=== PATIENT | male | born 1975 | race Caucasian/White ===

== ENCOUNTER 2023-01-11 17:31 | Emergency (ER) | payer OTHER ==
--- OUTSIDE RECORDS SUMMARY | 2023-01-11 17:35 | XMS REPORT | Continuity of Care Document ---
:1975 Author Organization [facility] t Address [address] [place] [address]. [address] [place] [address] Care Team Providers Name Role Phone Sen Knight Primary Care Physician DARÍO BALDERAS Attending Clinician Unavailable Mauro HICKMAN, Vipul Mondragon Attending Clinician Unavailable Sen Knight Attending Clinician Doctor Unassigned, [place] Attending Clinician Unavailable TARUN SILVEIRA Attending Clinician Unavailable Darío Balderas MD Attending Clinician [facility]ending Clinician Unavailable Tarun Al Attending Clinician [facility] Attending Clinician Unavailable Chidi Ortega RN, Onelia Mondragon Attending Clinician Unavailable Gavino Hawkins MD Attending Clinician Darío Mayfield MD Attending Clinician DARÍO MAYFIELD Attending Clinician Unavailable Lab, [facility] Attending Clinician Unavailable Nicanor Cleary MD Attending Clinician Elvin Odom DO Attending Clinician Pcp-Lab Attending Clinician Unavailable Azar TUCKER, Jamal Baird Attending Clinician JAMAL ASKEW Attending Clinician Unavailable Payers Payer Name Policy Type Policy Number Effective Date Expiration Date S eliseoce [facility] [id number] 2022 00:00:00 PLUS Problems Condition Condition Condition Status Onset Resolution Last Treating Co mments Source Name Details Category Date Date Treatment Clinician Date Polyarthra Polyarthra Disease Active U nivers lgia lgia 2 ity of 00:00: [address] History of History of Disease Active U nivers ankylosing ankylosing 2 it [place] [address] [place] [address] Branch Long-term Long-term Disease Active Uni vers use of use of 09-28 [place] Medical medication medication Br anch Generalize Generalize Disease Active U nivers d OA d OA 09-28 ity of 00:00: [address] HLA B27 HLA B27 Disease Active 2012-08 Ignacio (HLA B27 (HLA B27 10-10 Health positive) positive) 00:00: 00 Back pain Back pain Disease Active 2012-08 Jared ris 10-10 Health 00:00: 00 Rhabdomyol Rhabdomyol Disease Active 2012-08 H arris ysis ysis 2 Health 00:00: 00 Chest pain Chest pain Disease Active 2012-08 H arris 2-16 Health 00:00: 00 Eye pain Eye pain Disease Active Harri s 11-09 Health 00:00: 00 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 11-09 Health 00:00: 00 Anemia, Anemia, Disease Active 2011-08 Ignacio unspecifie unspecifie 2 He alth d d 00:00: 00 Blood in Blood in Disease Active 2011-08 Crissy harrell stool stool 2 Health 00:00: 00 Dental Dental Disease Active Ignacio caries caries 05-10 Health 00:00: 00 Allergies, Adverse Reactions, Alerts Allergy Allergy Status Severity Reaction(s) Onset Inactive Treating Comm ents Source Name Type Date Date Clinician NO KNOWN Drug Active Univers ALLERGIE Class ity of S [facility] Family History Family Member Diagnosis Comments Start Date Stop Date Source Maternal grandfather Diabetes [facility] Maternal grandmother Diabetes [facility] Natural mother Hypertension Ignacio Maher ealt Paternal grandmother Arthritis [facility] Paternal grandmother Diabetes [facility] Social History Social Habit Start Date Stop Date Quantity Comments Source History of tobacco Cigarette Smoker [facility] Gender identity Ignacio Kerns alth Sexual orientation [facility] Exposure to 2022-11-27 2022-12-07 Not sure University of SARS-CoV-2 (event) 00:00:00 13:13:00 [facility] Tobacco use and 2022-12-07 2022-12-07 Smokeless Universit y of exposure 00:00:00 00:00:00 tobacco non-user [facility] Alcohol intake 2021-12-15 2021-12-15 Current drinker Located within [facility] 00:00:00 00:00:00 of alcohol (finding) History of Social 2021-05-07 2021-05-07 [facility] function 00:00:00 00:00:00 Cigarettes smoked 2013-06-27 2013-06-27 [facility] current (pack per 00:00:00 00:00:00 day) - Reported Cigarette 2013-06-27 2013-06-27 [facility] pack-years 00:00:00 00:00:00 [birth year] Ignacio Kerns alth 00:00:00 00:00:00 Smoking Status Start Date Stop Date Source Ex-smoker 2022-12-07 00:00:00 2022-12-07 00:00:00 [facility]i ty of [facility] Smokes tobacco daily 2013-06-27 00:00:00 [facility] Medications Ordered Filled Start Stop Current Ordering Indication Dosage Frequency Signature Comments Components Source Medication Medication Date Date Medication? Clinician (SIG) Name Name JOE Yes [id number] 1{tbl} Take 1 U nivers 50-200-25 4-18 tablet by ity o f mg [place] the Medical morning. [place] JOE Yes [id number] 1{tbl} Take 1 U nivers 50-200-25 4-18 tablet by ity o f mg [place] the [place]. [place] JOE Yes [id number] 1{tbl} Take 1 U nivers 50-200-25 4-18 tablet by ity o f [place] the [place] morning. [place] DIAZ Yes [id number] 1{tbl} Take 1 U nivers 50-200-25 4-18 tablet by ity o f [place] the [place] morning. Jaelyn DIAZ Yes [id number] 1{tbl} Take 1 U nivers 50-200-25 4-18 tablet by ity o f [place] tablet [place] the [place] morning. Jaelyn DIAZ 0 Yes [id number] 1{tbl} Take 1 U nivers 50-200-25 4-18 tablet by ity o f mg tablet [place] the [place] morning. Jaelyn DIAZ Yes [id number] 1{tbl} Take 1 U nivers 50-200-25 4-18 tablet by ity o f [place] the [place]. Jaelyn DIAZ Yes [id number] 1{tbl} Take 1 U nivers 50-200-25 4-18 tablet by ity o f mg tablet [place] the Medical morning. Jaelyn DIAZ Yes [id number] 1{tbl} Take 1 U nivers 50-200-25 4-18 tablet by ity o f mg tablet [place] the [place] morning. Jaelyn DIAZ Yes [id number] 1{tbl} Take 1 U nivers 50-200-25 4-18 tablet by ity o f mg tablet [place] the [place] morning. Ja[place] DIAZ 0 Yes [id number] 1{tbl} Take 1 U nivers 50-200-25 4-18 tablet by ity o f mg tablet [place] the [place] morning. Jaelyn DIAZ 2022-0 Yes [id number] 1{tbl} Take 1 U nivers 50-200-25 4-18 tablet by ity o f mg tablet [place] the Medical morning. Ja[place] DIAZ 0 Yes [id number] 1{tbl} Take 1 U nivers 50-200-25 4-18 tablet by ity o f mg tablet 00:00: [facility]. Branch ranitidine 2023-0 2023- No 150mg Take 150 U nivers 150 mg 4-04 04-04 mg by ity of tablet 12:51: 00:00 mouth 2 [place] 47 :00 (two) Medical times Branch daily. ranitidine 2023-0 2023- No 150mg Take 150 U nivers 150 mg 4-04 04-04 mg by ity of tablet 12:51: 00:00 mouth 2 [place] 47 :00 (two) Medical times Branch daily. ranitidine 2023-0 2023- No 150mg Take 150 U nivers 150 mg 4-04 04-04 mg by ity of tablet 12:51: 00:00 mouth 2 [place] 47 :00 (two) Medical times [place] daily. ranitidine 2023-0 2023- No 150mg Take 150 U nivers 150 mg 4-04 04-04 mg by ity of tablet 12:51: 00:00 mouth 2 [place] 47 :00 (two) Medical times [place] daily. perphenazin 2023-0 2023- No 8mg Take 1 Uni vers e 8 mg 4-04 04-04 tablet by ity of tablet 12:51: 00:00 mouth in [place] 46 :00 the Medical morning. Branch perphenazin 2023-0 2023- No 8mg Take 1 Uni vers e 8 mg 4-04 04-04 tablet by ity of tablet 12:51: 00:00 mouth in [place] 46 :00 the Medical morning. Branch perphenazin 2023-0 2023- No 8mg Take 1 Uni vers e 8 mg 4-04 04-04 tablet by ity of tablet 12:51: 00:00 mouth in [place] 46 :00 the Medical morning. Branch perphenazin 2023-0 2023- No 8mg Take 1 Uni vers e 8 mg 4-04 04-04 tablet by ity of tablet 12:51: 00:00 mouth in [place] 46 :00 the Medical morning. Branch omeprazole 2023-0 2023- No 20mg Take 20 mg Univers 20 mg -11 23-04 by mouth ity of capsule 12:51: 00:00 daily. [place] 38 :00 Medical Branch omeprazole 2023-0 2023- No 20mg Take 20 mg Univers 20 mg 4-11 23-04 by mouth ity of capsule 12:51: 00:00 daily. [place] 38 :00 [facility] Branch omeprazole 2023-0 2023- No 20mg Take 20 mg Univers 20 mg -11 23-04 by mouth ity of capsule 12:51: 00:00 daily. [place] 38 :00 [facility] Branch omeprazole 2023-0 2023- No 20mg Take 20 mg Univers 20 mg -11 23-04 by mouth ity of capsule 12:51: 00:00 daily. 38 :00 [facility] Branch lisinopril 2023-0 2023- No 2.5mg Take 2.5 U nivers 2.5 mg 4-04 04-04 mg by ity of tablet 12:51: 00:00 mouth [place] 29 :00 daily. [facility] Branch lisinopril 2023-0 2023- No 2.5mg Take 2.5 U nivers 2.5 mg 4-04 04-04 mg by ity of tablet 12:51: 00:00 mouth [place] 29 :00 daily. [facility] lisinopril 2023-0 2023- No 2.5mg Take 2.5 U nivers 2.5 mg 4-04 04-04 mg by ity of tablet 12:51: 00:00 mouth [place] 29 :00 daily. [facility] lisinopril 2023-0 2023- No 2.5mg Take 2.5 U nivers 2.5 mg 4-04 04-04 mg by ity of tablet 12:51: 00:00 mouth [place] 29 :00 daily. [facility] FLUoxetine 2023-0 2023- No 40mg Take 40 mg Univers 20 mg -11 23-04 by mouth ity of capsule 12:51: 00:00 daily. [place] 19 :00 [facility] FLUoxetine 2023-0 2023- No 40mg Take 40 mg Univers 20 mg -11 23-04 by mouth ity of capsule 12:51: 00:00 daily. [place] 19 :00 [facility] FLUoxetine 2023-0 2023- No 40mg Take 40 mg Univers 20 mg -11 23-04 by mouth ity of capsule 12:51: 00:00 daily. [place] 19 :00 [facility] FLUoxetine 2023-0 2023- No 40mg Take 40 mg Univers 20 mg -11 23-04 by mouth ity of capsule 12:51: 00:00 daily. [place] 19 :00 Medical Branch diphenhydrA 2022-0 2022- No 50mg Take 50 mg Univers MINE 50 mg 11-23-04 by mouth ity of capsule 12:51: 00:00 daily. [place] 16 :00 Medical Branch diphenhydrA 2022-0 2022- No 50mg Take 50 mg Univers MINE 50 mg 11-23-04 by mouth ity of capsule 12:51: 00:00 daily. [place] 16 :00 Medical Branch diphenhydrA 2022-0 2022- No 50mg Take 50 mg Univers MINE 50 mg 11-23-04 by mouth ity of capsule 12:51: 00:00 daily. [place] 16 :00 Medical Branch diphenhydrA 2022-0 2022- No 50mg Take 50 mg Univers MINE 50 mg 11-23-04 by mouth ity of capsule 12:51: 00:00 daily. [place] 16 :00 Medical Branch carBAMazepi 2022-0 2022- No 400mg Take 400 Univers ne 200 mg 4-04 04-04 mg by ity of tablet 12:51: 00:00 mouth [place] 13 :00 daily. Medical Branch carBAMazepi 2022-0 2022- No 400mg Take 400 Univers ne 200 mg 4-04 04-04 mg by ity of tablet 12:51: 00:00 mouth [place] 13 :00 daily. Medical Branch carBAMazepi 2022-0 2022- No 400mg Take 400 Univers ne 200 mg 4-04 04-04 mg by ity of tablet 12:51: 00:00 mouth [place] 13 :00 daily. Medical Branch carBAMazepi 2022-0 3- No 400mg Take 400 Univers ne 200 mg 4-04 04-04 mg by ity of tablet 12:51: 00:00 mouth [place] 13 :00 daily. Medical Branch escitalopra 2022-0 Yes Univer s m oxalate 4-04 ity of 10 mg 00:00: [place] tablet 00 Medical Branch escitalopra 2022-0 Yes Univer s m oxalate 4-04 ity of 10 mg 00:00: [place] tablet 00 Medical Branch escitalopra 2022-0 Yes Univer s m oxalate 4-04 ity of 10 mg 00:00: [place] tablet 00 Medical Branch escitalopra 2022-0 Yes Univer s m oxalate 4-04 ity of 10 mg 00:00: [place] tablet 00 Medical Branch escitalopra 2022-0 Yes Univer s m oxalate 4-04 ity of 10 mg 00:00: [place] tablet 00 Medical Branch escitalopra 2022-0 Yes Univer s m oxalate 4-04 ity of 10 mg 00:00: [place] tablet 00 Medical Branch escitalopra 2022-0 Yes Univer s m oxalate 4-04 ity of 10 mg 00:00: [place] tablet 00 Medical Branch escitalopra 2022-0 Yes Univer s m oxalate 4-04 ity of 10 mg 00:00: [place] tablet 00 Medical Branch escitalopra 2022-0 Yes Univer s m oxalate 4-04 ity of 10 mg 00:00: [place] tablet 00 Medical Branch escitalopra 2022-0 Yes Univer s m oxalate 4-04 ity of 10 mg 00:00: [place] tablet 00 Medical Branch Etanercept 0 Yes [id number] 50mg inject 1 Univers (ENBREL 3-30 Pen under ity of SURECLICK) 00:00: the skin [place] 50 mg/mL ( 00 weekly. Medic al mL) Branch injection Etanercept 2022-0 Yes [id number] 50mg inject 1 Univers (ENBREL 3-30 Pen under ity of SURECLICK) 00:00: the skin [place] 50 mg/mL ( 00 weekly. Medic al mL) Branch injection Etanercept 2022-0 Yes [id number] 50mg inject 1 Univers (ENBREL 3-30 Pen under ity of SURECLICK) 00:00: the skin [place] 50 mg/mL ( 00 weekly. Medic al mL) Branch injection Etanercept 2022-0 Yes [id number] 50mg inject 1 Univers (ENBREL 3-30 Pen under ity of SURECLICK) 00:00: the skin [place] 50 mg/mL ( 00 weekly. Medic al mL) Branch injection Etanercept 2022-0 Yes [id number] 50mg inject 1 Univers (ENBREL 3-30 Pen under ity of SURECLICK) 00:00: the skin [place] 50 mg/mL ( 00 weekly. Medic al mL) Branch injection Etanercept 2022-0 Yes [id number] 50mg inject 1 Univers (ENBREL 3-30 Pen under ity of SURECLICK) 00:00: the skin [place] 50 mg/mL (1 00 weekly. Medic al mL) Branch injection Etanercept 3-0 Yes [id number] 50mg inject 1 Univers (ENBREL 3-30 Pen under ity of SURECLICK) 00:00: the skin [place] as 50 mg/mL (1 00 weekly. Medic al mL) Branch injection Etanercept 3-0 Yes [id number] 50mg inject 1 Univers (ENBREL 3-30 Pen under ity of SURECLICK) 00:00: the skin [place] as 50 mg/mL ( 00 weekly. Medic al mL) Branch injection Etanercept 2022-0 Yes [id number] 50mg inject 1 Univers (ENBREL 3-30 Pen under ity of SURECLICK) 00:00: the skin [place] as 50 mg/mL ( 00 weekly. Medic al mL) Branch injection Etanercept 2022-0 Yes [id number] 50mg inject 1 Univers (ENBREL 3-30 Pen under ity of SURECLICK) 00:00: the skin [place] as 50 mg/mL ( 00 weekly. Medic al mL) Branch injection Etanercept 2022-0 Yes [id number] 50mg inject 1 Univers (ENBREL 3-30 Pen under ity of SURECLICK) 00:00: the skin [place] as 50 mg/mL ( 00 weekly. Medic al mL) Branch injection Etanercept 2022-0 Yes [id number] 50mg inject 1 Univers (ENBREL 3-30 Pen under ity of SURECLICK) 00:00: the skin [place] as 50 mg/mL ( 00 weekly. Medic al mL) Branch injection Etanercept 2022-0 Yes [id number] 50mg inject 1 Univers (ENBREL 3-30 Pen under ity of SURECLICK) 00:00: the skin [place] as 50 mg/mL (1 00 weekly. Medic al mL) Branch injection Etanercept 3-0 Yes [id number] 50mg inject 1 Univers (ENBREL 3-30 Pen under ity of SURECLICK) 00:00: the skin [place] as 50 mg/mL (1 00 weekly. Medic al mL) Branch injection Etanercept 3-0 Yes [id number] 50mg inject 1 Univers (ENBREL 3-30 Pen under ity of SURECLICK) 00:00: the skin [place] as 50 mg/mL (1 00 weekly. Medic al mL) Branch injection Etanercept 2022-0 Yes [id number] 50mg inject 1 Univers (ENBREL 3-30 Pen under ity of SURECLICK) 00:00: the skin [place] as 50 mg/mL ( 00 weekly. Medic al mL) Branch injection Etanercept 2022-0 Yes [id number] 50mg inject 1 Univers (ENBREL 3-30 Pen under ity of SURECLICK) 00:00: the skin [place] as 50 mg/mL ( 00 weekly. Medic al mL) Branch injection Etanercept 2022-0 Yes [id number] 50mg inject 1 Univers (ENBREL 3-30 Pen under ity of SURECLICK) 00:00: the skin [place] as 50 mg/mL ( 00 weekly. Medic al mL) Branch injection Etanercept 2022-0 Yes [id number] 50mg inject 1 Univers (ENBREL 3-30 Pen under ity of SURECLICK) 00:00: the skin [place] as 50 mg/mL ( 00 weekly. Medic al mL) Branch injection Etanercept 2022-0 Yes [id number] 50mg inject 1 Univers (ENBREL 3-30 Pen under ity of SURECLICK) 00:00: the skin [place] as 50 mg/mL ( 00 weekly. Medic al mL) Branch injection Etanercept 2022-0 Yes [id number] 50mg inject 1 Univers (ENBREL 3-30 Pen under ity of SURECLICK) 00:00: the skin [place] as 50 mg/mL ( 00 weekly. Medic al mL) Branch injection Etanercept 2022-0 Yes [id number] 50mg inject 1 Univers (ENBREL 3-30 Pen under ity of SURECLICK) 00:00: the skin [place] as 50 mg/mL ( 00 weekly. Medic al mL) Branch injection Etanercept 2022-0 Yes [id number] 50mg inject 1 Univers (ENBREL 3-30 Pen under ity of SURECLICK) 00:00: the skin [place] as 50 mg/mL ( 00 weekly. Medic al mL) Branch injection Etanercept 2022-0 Yes [id number] 50mg inject 1 Univers (ENBREL 3-30 Pen under ity of SURECLICK) 00:00: the skin [place] as 50 mg/mL ( 00 weekly. Medic al mL) Branch injection Etanercept 2022-0 Yes [id number] 50mg inject 1 Univers (ENBREL 3-30 Pen under ity of SURECLICK) 00:00: the skin [place] as 50 mg/mL (1 00 weekly. Medic al mL) Branch injection Etanercept Yes [id number] 50mg inject 1 Univers (ENBREL 3-30 Pen under ity of SURECLICK) 00:00: the skin [place] as 50 mg/mL (1 00 weekly. Medic al mL) Branch injection Etanercept Yes [id number] 50mg inject 1 Univers (ENBREL 3-30 Pen under ity of SURECLICK) 00:00: the skin [place] as 50 mg/mL (1 00 weekly. Medic al mL) Branch injection carBAMazepi Yes 400mg Take 400 U nivers ne 200 mg 2-07 mg by ity of tablet 10:36: mouth daily. Medical Branch diphenhydrA Yes 50mg Take 50 mg Univers MINE 50 mg 2-07 by mouth ity o f capsule 10:36: daily. Medical Branch FLUoxetine Yes 40mg Take 40 mg U nivers 20 mg 2-07 by mouth ity of capsule 10:36: daily. Medical Branch perphenazin Yes 8mg Take 8 mg U nivers e 8 mg 2-07 by mouth ity of tablet 10:36: daily. Medical Branch lisinopril Yes 2.5mg Take 2.5 Un oswaldo 2.5 mg 2-07 mg by ity of tablet 10:36: mouth daily. Medical Branch omeprazole Yes 20mg Take 20 mg U nivers 20 mg 2-07 by mouth ity of capsule 10:36: daily. Medical Branch ranitidine Yes 150mg Take 150 Un oswaldo 150 mg 2-07 mg by ity of tablet 10:36: mouth 2 (two) Medical times Branch daily. carBAMazepi Yes 400mg Take 400 U nivers ne 200 mg 2-07 mg by ity of tablet 10:36: mouth daily. Medical Branch diphenhydrA Yes 50mg Take 50 mg Univers MINE 50 mg 2-07 by mouth ity o f capsule 10:36: daily. Medical Branch FLUoxetine Yes 40mg Take 40 mg U nivers 20 mg 2-07 by mouth ity of capsule 10:36: daily. Medical Branch perphenazin 0 Yes 8mg Take 8 mg U nivers e 8 mg 2-07 by mouth ity of tablet 10:36: daily. Medical Branch lisinopril Yes 2.5mg Take 2.5 Un oswaldo 2.5 mg 2-07 mg by ity of tablet 10:36: mouth daily. Medical Branch omeprazole Yes 20mg Take 20 mg U nivers 20 mg 2-07 by mouth ity of capsule 10:36: daily. Medical Branch ranitidine Yes 150mg Take 150 Un oswaldo 150 mg 2-07 mg by ity of tablet 10:36: mouth 2 (two) Medical times Branch daily. carBAMazepi Yes 400mg Take 400 U nivers ne 200 mg 2-07 mg by ity of tablet 10:36: mouth daily. Medical Branch diphenhydrA 0 Yes 50mg Take 50 mg Univers MINE 50 mg 2-07 by mouth ity o f capsule 10:36: daily. Medical Branch FLUoxetine Yes 40mg Take 40 mg U nivers 20 mg 2-07 by mouth ity of capsule 10:36: daily. Medical Branch perphenazin 0 Yes 8mg Take 8 mg U nivers e 8 mg 2-07 by mouth ity of tablet 10:36: daily. Medical Branch lisinopril Yes 2.5mg Take 2.5 Un oswaldo 2.5 mg 2-07 mg by ity of tablet 10:36: mouth daily. Medical Branch omeprazole Yes 20mg Take 20 mg U nivers 20 mg 2-07 by mouth ity of capsule 10:36: daily. Medical Branch ranitidine 0 Yes 150mg Take 150 Un oswaldo 150 mg 2-07 mg by ity of tablet 10:36: mouth 2 (two) Medical times Branch daily. carBAMazepi 0 Yes 400mg Take 400 U nivers ne 200 mg 2-07 mg by ity of tablet 10:36: mouth daily. Medical Branch diphenhydrA 0 Yes 50mg Take 50 mg Univers MINE 50 mg 2-07 by mouth ity o f capsule 10:36: daily. Medical Branch FLUoxetine 2018-0 Yes 40mg Take 40 mg U nivers 20 mg 2-07 by mouth ity of capsule 10:36: daily. Medical Branch perphenazin 2018-0 Yes 8mg Take 8 mg U nivers e 8 mg 2-07 by mouth ity of tablet 10:36: daily. Medical Branch lisinopril Yes 2.5mg Take 2.5 Un oswaldo 2.5 mg 2-07 mg by ity of tablet 10:36: mouth daily. Medical Branch omeprazole 0 Yes 20mg Take 20 mg U nivers 20 mg 2-07 by mouth ity of capsule 10:36: daily. Medical Branch ranitidine 0 Yes 150mg Take 150 Un oswaldo 150 mg 2-07 mg by ity of tablet 10:36: mouth 2 (two) Medical times Branch daily. carBAMazepi 0 Yes 400mg Take 400 U nivers ne 200 mg 2-07 mg by ity of tablet 10:36: mouth daily. Medical Branch diphenhydrA Yes 50mg Take 50 mg Univers MINE 50 mg 2-07 by mouth ity o f capsule 10:36: daily. Medical Branch FLUoxetine 2017-0 Yes 40mg Take 40 mg U nivers 20 mg 2-07 by mouth ity of capsule 10:36: daily. Medical Branch perphenazin 0 Yes 8mg Take 8 mg U nivers e 8 mg 2-07 by mouth ity of tablet 10:36: daily. Medical Branch lisinopril 0 Yes 2.5mg Take 2.5 Un oswal[place] 2.5 mg 2-07 mg by ity of tablet 10:36: mouth daily. Medical Branch omeprazole 0 Yes 20mg Take 20 mg U nivers 20 mg 2-07 by mouth ity of capsule 10:36: daily. Medical Branch ranitidine 2017-0 Yes 150mg Take 150 Un oswaldo 150 mg 2-07 mg by ity of tablet 10:36: mouth 2 (two) Medical times Branch daily. carBAMazepi 0 Yes 400mg Take 400 U nivers ne 200 mg 2-07 mg by ity of tablet 10:36: mouth [place] 02 daily. Medical Branch diphenhydrA Yes 50mg Take 50 mg Univers MINE 50 mg 2-07 by mouth ity o f capsule 10:36: daily. Medical Branch FLUoxetine 2017-0 Yes 40mg Take 40 mg U nivers 20 mg 2-07 by mouth ity of capsule 10:36: daily. Medical Branch perphenazin 2017- Yes 8mg Take 8 mg U nivers e 8 mg 2-07 by mouth ity of tablet 10:36: daily. Medical Branch lisinopril Yes 2.5mg Take 2.5 Un oswaldo 2.5 mg 2-07 mg by ity of tablet 10:36: mouth [place] 02 daily. Medical Branch omeprazole Yes 20mg Take 20 mg U nivers 20 mg 2-07 by mouth ity of capsule 10:36: daily. Medical Branch ranitidine Yes 150mg Take 150 Un oswaldo 150 mg 2-07 mg by ity of tablet 10:36: mouth 2 (two) Medical times Branch daily. meloxicam 0 Yes 15mg Take 1 Univer s 15 mg 2-07 tablet by ity of tablet 00:00: mouth [place] 00 daily. Medical Branch foLIC acid 0 Yes 1mg Take 1 Unive rs 1 mg tablet 2-07 tablet by ity of 00:00: mouth [place] 00 daily. Medical Branch meloxicam 0 Yes 15mg Take 1 Univer s 15 mg 2-07 tablet by ity of tablet 00:00: mouth [place] 00 daily. Medical Branch foLIC acid 0 Yes 1mg Take 1 Unive rs 1 mg tablet 2-07 tablet by ity of 00:00: mouth [place] 00 daily. Medical Branch meloxicam 0 Yes 15mg Take 1 Univer s 15 mg 2-07 tablet by ity of tablet 00:00: mouth [place] 00 daily. Medical Branch adalimumab 2018-0 Yes 40mg inject 0.8 U nivers (HUMIRA) 40 2-07 mL under ity of mg/0.8 mL 00:00: [place] injection 00 every 2 Medical (two) Branch weeks. methotrexat 2017-0 Yes 20mg Take 8 Univ ers e 2.5 mg 2-07 tablets by ity o f tablet 00:00: mouth [place] 00 weekly. [facility] Branch foLIC acid 2017-0 Yes 1mg Take 1 Unive rs 1 mg tablet 2-07 tablet by ity of 00:00: mouth [place] 00 daily. [facility] Branch meloxicam 2017-0 Yes 15mg Take 1 Univer s 15 mg 2-07 tablet by ity of tablet 00:00: mouth [place] 00 daily. [facility] Branch foLIC acid 2017-0 Yes 1mg Take 1 Unive rs 1 mg tablet 2-07 tablet by ity of 00:00: mouth [place] 00 daily. [facility] Branch meloxicam 2017-0 Yes 15mg Take 1 Univer s 15 mg 2-07 tablet by ity of tablet 00:00: mouth [place] 00 daily. [facility] Branch foLIC acid 0 Yes 1mg Take 1 Unive rs 1 mg tablet 2-07 tablet by ity of 00:00: mouth [place] 00 daily. [facility] Branch meloxicam 0 Yes 15mg Take 1 Univer s 15 mg 2-07 tablet by ity of tablet 00:00: mouth [place] 00 daily. [facility] Branch foLIC acid 2017-0 Yes 1mg Take 1 Unive rs 1 mg tablet 2-07 tablet by ity of 00:00: mouth [place] 00 daily. [facility] meloxicam 2017-0 3- No 15mg Take 1 Unive rs 15 mg 2-07 04-04 tablet by ity of tablet 00:00: 00:00 mouth [place] 00 :00 daily. [facility] Branch foLIC acid 2017-0 3- No 1mg Take 1 Univ ers 1 mg tablet 2-02 22-04 tablet by it y of 00:00: 00:00 mouth [place] 00 :00 daily. [facility] Branch meloxicam 2017-0 3- No 15mg Take 1 Unive rs 15 mg 2-07 04-04 tablet by ity of tablet 00:00: 00:00 mouth [place] 00 :00 daily. [facility] Branch foLIC acid 2017-0 2023- No 1mg Take 1 Univ ers 1 mg tablet 2- 04-04 tablet by it y of 00:00: 00:00 mouth [place] 00 :00 daily. [facility] Branch meloxicam 2017-0 3- No 15mg Take 1 Unive rs 15 mg 2-07 04-04 tablet by ity of tablet 00:00: 00:00 mouth [place] 00 :00 daily. [facility] Branch foLIC acid 2017-0 2023- No 1mg Take 1 Univ ers 1 mg tablet 2-07 04- tablet by it y of 00:00: 00:00 mouth [place] 00 :00 daily. Medical Branch meloxicam 2022- No 15mg Take 1 Unive rs 15 mg 09-28- tablet by ity of tablet 00:00: 00:00 mouth [place] 00 :00 daily. Medical Branch foLIC acid 2022- No 1mg Take 1 Univ ers 1 mg tablet 09-28 tablet by it y of 00:00: 00:00 mouth [place] 00 :00 daily. Medical Branch adalimumab 2022- No 40mg inject 0.8 Univers (HUMIRA) 40 2-07 03-30 mL under ity of mg/0.8 mL 00:00: 00:00 the skin Deyvi as injection 00 :00 every 2 Medical (two) Branch weeks. methotrexat 2022- No 20mg Take 8 Uni vers e 2.5 mg 2-07 03-30 tablets by ity of tablet 00:00: 00:00 mouth [place] 00 :00 weekly. Medical Branch adalimumab 2022- No 40mg inject 0.8 Univers (HUMIRA) 40 2-07 03-30 mL under ity of mg/0.8 mL 00:00: 00:00 the skin Deyvi as injection 00 :00 every 2 Medical (two) Branch weeks. methotrexat 2022- No 20mg Take 8 Uni vers e 2.5 mg 2-07 03-30 tablets by ity of tablet 00:00: 00:00 mouth [place] 00 :00 weekly. Medical Branch adalimumab 2022- No 40mg inject 0.8 Univers (HUMIRA) 40 2-07 03-30 mL under ity of mg/0.8 mL 00:00: 00:00 the skin Deyvi as injection 00 :00 every 2 Medical (two) Branch weeks. methotrexat 2022- No 20mg Take 8 Uni vers e 2.5 mg 2-07 03-30 tablets by ity of tablet 00:00: 00:00 mouth [place] 00 :00 weekly. Medical Branch cane Silvia Yes HLA B27 Use to Jared ris 5-21 (HLA B27 assist Health 00:00: positive) with 00 ambulation .. adalimumab Yes Inject 0.8 H arris (HUMIRA) 40 5-21 mililiters He alth mg/0.8 mL 00:00: under the injection 00 skin every kit 14 days ARIPiprazol Yes Bipolar I Take 1/2 Pierre e (ABILIFY) 5-02 disorder, tablet in Health 10 mg 00:00: most recent the tablet 00 episode (or morning current) for one unspecified week, then increase to 1 full tablet in the morning.. polyethylen Yes Mix as Elsa is e glycol 4-15 directed [facility] (GOLYTELY) 00:00: with [id number] 00 lukewarm .74 gram water to oral fill line solution and drink as directed. adalimumab Yes Spondylarth Inject 0.8 Pierre (HUMIRA 1-21 ritis mL under [facility] PEN) 40 00:00: the skin mg/0.8 mL 00 once every PnKt 2 weeks.. traMADol Yes Osteoarthri 50mg Take 1 [place] (ULTRAM) 50 1-09 tis of back tablet by [facility] mg tablet 00:00: mouth 00 every 8 hours as needed for Pain. HYDROcodone 2012-08 Yes Back pain 1{tbl} Take 1 [place] -acetaminop 2-20 tablet by [facility] hen (NORCO) 00:00: mouth 5-325 mg 00 every 6 tablet hours as needed for Pain. gabapentin 2012-08 Yes Neuralgia 300mg Take 1 Pierre (NEURONTIN) 1-06 capsule by alth 300 mg 00:00: mouth 3 capsule 00 times daily as needed for Pain. ibuprofen 2011-08 Yes Back pain 400mg Take 1 Pierre (MOTRIN) 0-18 tablet by [facility] 400 mg 00:00: mouth tablet 00 every 6 hours as needed for Pain. cyclobenzap Yes Back pain 10mg Take 1 [place] rine 9-18 tablet by [facility] (FLEXERIL) 00:00: mouth 3 10 mg 00 times tablet daily as needed for Muscle Spasms. Immunizations Ordered Immunization Filled Immunization Date Status Commen ts Source Name Name SARS-COV-2 COVID-19 2021-06-19 Completed Unive rsity of MODERNA 12+ YRS 00:00:00 [place] [facility] ical VACCINE Branch SARS-COV-2 COVID-19 2021-06-19 Completed Unive rsity of MODERNA 12+ YRS 00:00:00 [place] Med ical VACCINE Branch SARS-COV-2 COVID-19 2021-06-19 Completed Unive rsity of MODERNA 12+ YRS 00:00:00 [place] [facility] ical VACCINE Branch SARS-COV-2 COVID-19 2021-06-19 Completed Unive rsity of MODERNA 12+ YRS 00:00:00 [place] [facility] ical VACCINE Branch SARS-COV-2 COVID-19 2021-06-19 Completed Unive rsity of MODERNA 12+ YRS 00:00:00 [place] [facility] ical VACCINE Branch SARS-COV-2 COVID-19 2021-06-19 Completed Unive rsity of MODERNA 12+ YRS 00:00:00 [place] [facility] ical VACCINE Branch SARS-COV-2 COVID-19 2021-06-19 Completed Unive rsity of MODERNA 12+ YRS 00:00:00 [place] [facility] ical VACCINE Branch SARS-COV-2 COVID-19 2021-06-19 Completed Unive rsity of MODERNA 12+ YRS 00:00:00 [place] [facility] ical VACCINE Branch SARS-COV-2 COVID-19 2021-06-19 Completed Unive rsity of MODERNA 12+ YRS 00:00:[address] [facility] VACCINE Branch SARS-COV-2 COVID-19 2021-06-19 Completed Unive rsity of MODERNA 12+ YRS 00:00:[address] [facility] VACCINE Branch SARS-COV-2 COVID-19 2021-05-20 Completed Unive rsity of VACCINE - (MODERNA) 00:00:00 [facility] SARS-COV-2 COVID-19 2021-05-20 Completed Unive rsity of VACCINE - (MODERNA) 00:00:00 [facility] SARS-COV-2 COVID-19 2021-05-20 Completed Unive rsity of VACCINE - (MODERNA) 00:00:00 [facility] SARS-COV-2 COVID-19 2021-05-20 Completed Unive rsity of VACCINE - (MODERNA) 00:00:00 [facility] SARS-COV-2 COVID-19 2021-05-20 Completed Unive rsity of VACCINE - (MODERNA) 00:00:00 [facility] SARS-COV-2 COVID-19 2021-05-20 Completed Unive rsity of VACCINE - (MODERNA) 00:00:00 [facility] SARS-COV-2 COVID-19 2021-05-20 Completed Unive rsity of VACCINE - (MODERNA) 00:00:00 [facility] SARS-COV-2 COVID-19 2021-05-20 Completed Unive rsity of VACCINE - (MODERNA) 00:00:00 [facility] SARS-COV-2 COVID-19 2021-05-20 Completed Unive rsity of VACCINE - (MODERNA) 00:00:00 [facility] SARS-COV-2 COVID-19 2021-05-20 Completed Unive rsity of VACCINE - (MODERNA) 00:00:00 [facility] SARS-COV-2 COVID-19 2021-05-20 Completed Unive rsity of VACCINE - (MODERNA) 00:00:00 [facility] SARS-COV-2 COVID-19 2021-05-20 Completed Unive rsity of VACCINE - (MODERNA) 00:00:00 [facility] SARS-COV-2 COVID-19 2021-05-20 Completed Unive rsity of VACCINE - (MODERNA) 00:00:00 [facility] Influenza Vac 2013-08-09 Completed [facility] (Fluarix) 00:00:00 PPV 23 Pneumococcal 2013-08-09 Completed Located within [facility] Polysaccaride 00:00:00 PPD 2012-05-11 Completed [facility] 00:00:00 PPD 2012-05-09 Completed [facility] 00:00:00 Vital Signs Vital Name Observation Time Observation Value Comments Source Systolic blood 2022-12-07 18:54:00 117 mm[Hg] Univer sity of pressure [facility] Diastolic blood 2022-12-07 18:54:00 70 mm[Hg] Unive rsity of pressure [facility] Heart rate 2022-12-07 18:54:00 85 /min [facility] Body temperature 2022-12-07 18:54:00 36.11 Yesy [facility] Res[facility] 2022-12-07 18:54:00 18 /min [facility] Body height 2022-12-07 18:54:00 177.8 cm [facility] Body weight 2022-12-07 18:54:00 75.751 kg [facility] [place] [facility] BMI 2022-12-07 18:54:00 23.96 kg/m2 [facility] [place] [facility] Oxygen saturation in 2022-12-07 18:54:00 99 /min University of Arterial blood by [facility] Pulse oximetry Branch Systolic blood 2022-11-23 17:50:00 126 mm[Hg] Univer sity of pressure [place] [facility] Diastolic blood 2022-11-23 17:50:00 79 mm[Hg] Unive rsity of pressure [place] [facility] Heart rate 2022-11-23 17:50:00 90 /min [facility] [place] [facility] Body height 2022-11-23 17:50:00 177.8 cm [facility] [place] [facility] Body weight 2022-11-23 17:50:00 78.472 kg [facility] [place] [facility] BMI 2022-11-23 17:50:00 24.82 kg/m2 [facility] [place] [facility] Oxygen saturation in 2022-11-23 17:50:00 100 /min University of Arterial blood by [facility] Pulse oximetry Branch Systolic blood 2022-11-18 15:14:00 112 mm[Hg] Univer sity of pressure [place] [facility] Diastolic blood 2022-11-18 15:14:00 80 mm[Hg] Unive rsity of pressure [place] [facility] [place] Heart rate 2022-11-18 15:14:00 92 /min [facility] [place] [facility] Body temperature 2022-11-18 15:14:00 36.39 Yesy Univ ersity of [place] [facility] Respiratory rate 2022-11-18 15:14:00 18 /min Univ ers[facility] of [place] [facility] Body height 2022-11-18 15:14:00 177.8 cm [facility] [place] [facility] Body weight 2022-11-18 15:14:00 76.386 kg [facility] [place] [facility] BMI 2022-11-18 15:14:00 24.16 kg/m2 [facility] [place] [facility] Oxygen saturation in 2022-11-18 15:14:00 95 /min r/a University of Arterial blood by [facility] Pulse oximetry Branch Procedures Procedure Date / Time Performed Performing Clinician Sournahid e XR LUMBAR SPINE 3 VW 2022-11-18 17:16:12 [place]-[facility]need[facility] XR SACROILIAC JOINTS 2022-11-18 17:16:12 [place]-Sened, [facility]ino [facility] [place] 3+ Medical [place] XR LUMBAR SPINE 3 VW 2022-11-18 17:16:12 [place]-Sneed, Gavino [facility] XR SACROILIAC JOINTS 2022-11-18 17:16:12 [place]-Sneed, Gavino [facility] [place] [facility] Branch CONSENT/REFUSAL FOR 2022-11-18 15:02:08 Doctor Unassigned, [facility] Plan of Care Planned Activity Planned Date Details Comments Source Future Scheduled Test 1976-05-10 00:00:00 COVID-19 Vaccine [facility] (#1) [code = COVID-19 Vaccine (#1)] Encounters Start End Encounter Admission Attending Care Care Encounter Source Date/Time Date/Time Type Type Clinicians Facility Department ID 2023-02-25 2023-02-25 Outpatient R SHERRIE [facility] [id number] Univers 10:30:00 10:30:00 DARÍO jennings [facility] 2023-01-11 2023-01-11 Nurse ANA PAULA Wade [id number] Univers 00:00:00 00:00:00 Triage Vipul LAGUNA 350.1.13.10 it y of HOSPITAL 4.2.7.2.686 Deyvi as [id number] [address] 2023-01-11 2023-01-11 Telephone Eugene [facility] [id number] Univers 00:00:00 00:00:00 Sen FRIENDSWO 350.1.13.10 [place]2.[place] [id number] Md dicsd AND ADULT [address] [place] [address] SPECIALTY CARE CLINICS 2023-01-11 2023-01-11 Patient Doctor ANA PAULA 1.2.840.114 [id number] Univers 00:00:00 00:00:00 Secure Msg LUZ ELENA Quinn 350.1.13.[address] [place] [facility] 4.2.7.2.686 Deyvi as [phone] [facility] 044 Branch 2023-01-07 2023-01-07 Outpatient R TORIBIO [facility] [id number] Univers 13:30:00 13:30:00 TARUN monetvinh [facility] 2022-12-31 2022-12-31 [facility] [id number] Univers 10:30:00 10:30:00 DARÍO vinh [facility] 2022-12-31 2022-12-31 Outpatient R SHERRIE [facility] [id number] Univers 08:30:00 08:30:00 DAR[facility]O [facility] 2022-12-27 2022-12-27 Telephone [facility] [id number] Univers 00:00:00 00:00:00 Darío MULTISPEC 350.1.13.10 ity of [place]2.[place] [id number] [facility] 0[facility] [place] [facility] 2022-12-22 2022-12-22 Telephone [facility] [id number] Univers 00:00:00 00:00:00 Darío WYMANPEC 350.1.13.10 ity of [place] [facility] 4.2.7.2.686 [place] [phone] [facility] 0[facility] [place] [facility] 2022-12-10 2022-12-10 [facility] 1.2.840.114 [id number] Univers 00:00:00 00:00:00 Dominguez Wilkins MULTISPEC 350.1.13.10 ity of I[place]2.[place] [id number] [facility] AND [facility]TLE[facility] [address] [place] [facility] 2022-12-10 2022-12-10 [facility] [id number] Univers 00:00:00 00:00:00 Secure [facility] 350.1.13.10 ity of [facility] 4.2.7.2.686 [place] [id number] [facility] 089 Branch 2022-12-09 2022-12-09 Telephone [facility] 1.2.840.114 [id number] Univers 00:00:00 00:00:00 [facility] 350.1.13.10 i ty of CLINICS 4.2.7.2.686 [place] [id number] [place] [address] [place] 2022-12-07 2022-12-07 Stapler Machine [facility] UNIVERSIT 1.2.840.114 [id number] Univers 15:30:00 15:45:00 Visit [facility] 350.1.13.10 ity of CLINICS 4.2.7.2.686 [place] [id number] [facility] 316 Branch 2022-12-07 2022-12-07 Office [facility] [id number] Univers 13:30:00 14:30:00 Visit [facility] 350.1.13.10 i ty of CLINICS 4.2.7.2.[place] [id number] [place] [address] [place] 2022-12-07 2022-12-07 Outpatient R [facility] [id number] Univers 13:30:00 13:30:00 [facility] 2022-12-07 2022-12-07 Marko Murillo [place], [facility] 1.2.840.114 [id number] Univers 00:00:00 00:00:00 Management [facility] 350.1.13.10 ity of CLINICS 4.2.7.2.686 [place] [id number] [place] [address] [place] 2022-12-06 2022-12-06 Telephone [facility] 1.2.840.114 [id number] Univers 00:00:00 00:00:00 z, Gavino PRIMARY 350.1.13.10 ity of C[place].2.7.2.[place] [id number] [facility] 086 [place] 2022-12-01 2022-12-01 Telephone [facility] 1.2.840.114 [id number] Univers 00:00:00 00:00:00 z, Gavino PRIMARY 350.1.13.10 ity of C[place] 4.2.7.2.686 [place] [id number] Md lalito 086 [place] 2022-11-23 2022-11-23 Hospital [facility] [id number] Univers 16:16:29 23:59:00 Encounter Darío Perdomo SPECIALTY 350.1.13.10 ity of [place] 4[place]7.2.[place] AT [id number] Md lalito SHEARER 804 [facility] 2022-11-23 2022-11-23 Stapler Machine Lab, [facility] 1.2.840.114 [id number] Univers 15:30:00 15:45:00 Visit Nicanor Cleary SPECIALTY 350.1.13. 10 ity of [place].2.7.2.[place] AT [id number] Md lalito SHEARER 353 [facility] 2022-11-23 2022-11-23 [facility] [id number] Univers 13:00:00 13:33:43 DARÍO jennings [facility] 2022-11-23 2022-11-23 Office Elvin Odom [facility] 1.2.840.114 [id number] Univers 13:00:00 13:33:43 Visit Darío Mayfield MULTISPEC 350.1.13.1 0 ity of I[place] 4.2.7.2.686 [place] [id number] [facility] AND [facility] SETTLEMENT 011 [place] [facility] 2022-11-22 2022-11-22 Telephone [facility] 1.2.840.114 [id number] Univers 00:00:00 00:00:00 Nicanor B PRIMARY 350.1.13.10 i ty of C[place] 4.2.7.2.[place] [id number] Md lalito 086 [place] 2022-11-18 2022-11-18 [facility] 1.2.840.114 [id number] Univers 11:46:27 23:59:00 Encounter Nicanor B PRIMARY 350.1.13.10 ity of C[place] 4.2.7.2.686 [place] [id number] Md dical 807 Branch 2022-11-18 2022-11-18 Stapler Machine Pcp-Lab [facility] 1.2.840.114 [id number] Univers 12:45:00 13:00:00 Visit Jamal Askew PRIMARY 350.1.13. 10 ity of [place] 4.2.7.2.[place] [id number] Md dical 366 Branch 2022-11-18 2022-11-18 Hospital Evin [facility] 1.2.840.114 [id number] Univers 11:29:08 11:45:00 Encounter Nicanor B PRIMARY 350.1.13.10 ity of [place] 4.2.[place].2.[place] [id number] Md dical 807 Branch 2022-11-18 2022-11-18 Office Gavino Hawkins [facility] 1.2. [id number] Univers 09:30:00 11:20:52 Visit Jamal Askew PRIMARY 350.1.13. 10 ity of C[place] 4.2.7.2.[place] [id number] Md dical 086 Branch 2022-11-18 2022-11-18 Outpatient R AZAR [facility] [id number] Univers 09:30:00 11:20:52 JAMAL ity of [facility] 2022-11-18 2022-11-18 Orders Doctor ANA PAULA 1.2.840.114 [id number] Univers 00:00:00 00:00:00 Only Unassigned, LUZ ELENA 350.1.13.[address] [place] [facility] 4.2.7.2.686 Deyvi as [id number] [address] Results This patient has no known results.
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
--- NOTE | 2023-01-11 18:16 | EDPHYS ---
Physician Documentation [facility] Name: Josef Mcclure Age: 47 yrs Sex: Male : 1975 Arrival Date: 01/11/2023 Time: 17:31 Bed [id number] Private MD: ED Physician Nahed Rosenbaum HPI: 01/11 18:13 This 47 yrs old Male presents to ER via Ambulatory with complaints of Mental evaluation.sp3 18:13 47-year-old male with history of anxiety and depression presents voluntarily via police sp3 for "mental evaluation" for major depression and fleeting thoughts of suicide. Patient is not actively suicidal, homicidal, or hearing voices. He was supposed to meet a "crisis counselor" at the mall parking lot but once he got there the police came and brought him here. He is extremely worried about his vehicle and states that everything he owns is inside the vehicle. He wants to ensure the safety of his vehicle and belongings before seeking any help at this time. I have advised him that we can sort all of that out later and he needs to get worked up here.. Historical: - Allergies: 17:45 No Known Allergies; iw - Home Meds: 17:45 Biktarvy 50-200-25 mg oral tablet daily [Active]; escitalopram oxalate 10 mg oral iw tablet daily [Active]; Enbrel 50 mg/mL (1 mL) subcutaneous Syringe every week [Active]; - PMHx: 17:45 Depressive disorder; Anxiety; RA; iw - PSHx: 17:45 orbital fracture; iw - Immunization history:: Adult Immunizations not up to date. - Social history:: Smoking status: Patient reports the use of cigarette tobacco products, smokes one pack cigarettes per day. Patient uses alcohol, occasionally. street drugs, marijuana, IV drugs, amphetamines. ROS: 18:14 Constitutional: Negative for fever, chills, and weight loss, Eyes: Negative for injury, sp3 pain, redness, and discharge, ENT: Negative for injury, pain, and discharge, Neck: Negative for injury, pain, and swelling, Cardiovascular: Negative for chest pain, palpitations, and edema, Respiratory: Negative for shortness of breath, cough, wheezing, and pleuritic chest pain, Abdomen/GI: Negative for abdominal pain, nausea, vomiting, diarrhea, and constipation, Back: Negative for injury and pain, MS/Extremity: Negative for injury and deformity, Skin: Negative for injury, rash, and discoloration, Neuro: Negative for headache, weakness, numbness, tingling, and seizure. 18:14 All other systems are negative. Exam: 18:14 Constitutional: This is a well developed, well nourished patient who is awake, alert, sp3 and in no acute distress. Head/Face: Normocephalic, atraumatic. Eyes: Pupils equal round and reactive to light, extra-ocular motions intact. Lids and lashes normal. Conjunctiva and sclera are non-icteric and not injected. Cornea within normal limits. Periorbital areas with no swelling, redness, or edema. ENT: Nares patent. No nasal discharge, no septal abnormalities noted. External auditory canals are clear. Oropharynx with no redness, swelling, or masses, exudates, or evidence of obstruction, uvula midline. Mucous membranes moist. Neck: Trachea midline, no thyromegaly or masses palpated, and no cervical lymphadenopathy. Supple, full range of motion without nuchal rigidity, or vertebral point tenderness. No Meningismus. Chest/axilla: Normal chest wall appearance and motion. Nontender with no deformity. No lesions are appreciated. Cardiovascular: Regular rate and rhythm with a normal S1 and S2. No gallops, murmurs, or rubs. Normal PMI, no JVD. No pulse deficits. Respiratory: Lungs have equal breath sounds bilaterally, clear to auscultation and percussion. No rales, rhonchi or wheezes noted. No increased work of breathing, no retractions or nasal flaring. Abdomen/GI: Soft, non-tender, with normal bowel sounds. No distension or tympany. No guarding or rebound. No evidence of tenderness throughout. Back: No spinal tenderness. No costovertebral tenderness. Full range of motion. Skin: Warm, dry with normal turgor. Normal color with no rashes, no lesions, and no evidence of cellulitis. MS/ Extremity: Pulses equal, no cyanosis. Neurovascular intact. Full, normal range of motion. Neuro: Awake and alert, GCS 15, oriented to person, place, time, and situation. Cranial nerves II-XII grossly intact. Motor strength 5/5 in all extremities. Sensory grossly intact. Cerebellar exam normal. Normal gait. 18:14 Psych: No suicidal or homicidal ideation, patient does not respond to internal stimuli.. Vital Signs: 17:43 BP 130 / 81; Pulse 98; Resp 16; Temp 98.4; Pulse Ox 100% on R/A; Weight 77.56 kg; iw Height 5 ft. 9 in. ; Pain 7/10; 17:43 Body Mass Index 25.25 (77.56 kg, 175.26 cm) iw 17:43 Pain Scale: Adult iw MDM: 18:02 Patient medically screened. sp3 18:15 Data reviewed: vital signs, nurses notes. ED course: Will clear medically and seek sp3 psychiatric evaluation.. 01/11 18:01 Order name: EKG; Complete Time: 18:02 sp3 01/11 18:01 Order name: EKG - Nurse/Tech sp3 01/11 18:01 Order name: IV Saline Lock sp3 01/11 18:01 Order name: Labs collected and sent sp3 01/11 18:01 Order name: Suicide Precautions sp3 01/11 18:01 Order name: Suicide Screening ([place]) sp3 Administered Medications: No medications were administered Disposition Summary: 01/11/23 18:16 Eloped Disposition: after being seen by provider sp3 Reason: other sp3 Condition: Stable sp3 Diagnosis - Major depression without suicidal ideation, anxiety sp3 Signatures: Dispatcher [employer] Claribel Carlin, VICK RN iw Nahed Rosenbaum MD MD sp3
[2023-01-11 18:46] VITALS: BP 130/81; TEMP 98.4; O2SAT 100
--- NOTE | 2023-01-12 13:37 | EKG ---
Test Date: 2023-01-11 Test Time: 20:29:50 Senior [employer] Developer: MEASUREMENT RESULTS: Intervals: Rate: 137 TX: QRSD: 132 QT: 326 QTc: 492 [place]: P: TX: QRS: 70 T: 64 INTERPRETIVE STATEMENTS: Sinus tachycardia Right bundle branch block Abnormal ECG No previous ECG available for comparison Electronically Signed On 01-12-23 13:37:32 CDT by Bon Hollingsworth
== END 2023-01-11 18:41 | disposition left against medical advice (07) ==
LOC: ER 17:31
DX: F32.9 Major depressive disorder, single episode, unspecified (principal); F41.9 Anxiety disorder, unspecified; F17.210 Nicotine dependence, cigarettes, uncomplicated
CPT/HCPCS: 93005; 99281